=== PATIENT | male | born 1980 | race Caucasian/White ===

== ENCOUNTER 2021-07-26 10:46 | Outpatient (CLI) | payer OTHER ==
[2021-07-26 11:45] VITALS: BP 151/82
--- NOTE | 2021-07-26 11:45 | SLEEP CARE CONSULTATION ---
Information from patient questionnaire entered by Rylee Lyman. I have reviewed and concur with the information entered by Rylee Lyman. This document represents the service I personally performed and the decisions made by me, Amparo Rhodes ARNP. History of Present Illness Service Date and Time: 07/26/2021 1046 Reason for Visit: New patient Chief Complaint: reports: Unrefreshed sleep, Snoring, Observed pauses in breathing, Fatigue Date of Onset: 2 years Usual bedtime: 9 pm, sometimes 10-11 pm Time it takes to fall asleep: 20 minutes Snores at night: Yes Observed to quit breathing while asleep: Yes Sleeps alone due to snoring: Yes Number of times waking at night: 1-2 Reasons for waking at night: reports: Bathroom Toss, Turn, or Twitch while sleeping: No Recalls having dreams: Yes Usually gets out of bed at: 4:30 am; weekends about 9 AM Feels refreshed in the morning: No Morning headache: No Sleepy or fatigued during the day: Yes Ever fallen asleep while driving: No (sometimes at end of day) Takes day naps: No Dreams during day naps: Yes Prior sleep studies: No Additional HPI information: I had the pleasure of seeing KAITLIN BOSWELL today regarding the po ssibility of him having a sleep disorder. His current complaints are fatigue, observed pauses in breathing, snoring and unrefreshed sleep. His has encouraged him to be checked due to the loud snoring. He will gasp in his sleep and has seen him sit up in bed then lay down to go back to sleep without really awakening about 1 time a month. He does not wake up feeling refreshed and has fatigue/tiredness during the day. He drinks a lot of coffee (6 cups) through the first part of day to stay awake. - Parasomnia Symptoms Ever been unable to move upon waking from sleep: Yes Walks in sleep: No Talks in sleep: Yes Ever acted out dreams in sleep: No Ever felt weak in the knees when startled or emotional: No Bothered by creepy, crawly, restless sensations in legs: No Problems with memory or concentration: Yes (more memory) Subjective Initial [place] Sleepiness Scale score: 12 (in 2020) Past Medical History Past Medical History: reports: Other (Reoccuring rash that occurs with changes in weather and sometime stress) Social History The patient's occupation is a Active . Patient is and lives in [place]. Have you smoked in the past 12 months: No Alcohol use: Yes Alcohol amount and frequency: 2 drinks twice a week Caffeine use: Yes Caffeine amount and frequency: 6 cups daily Family History Family history of sleep disordered breathing: Yes Family Hx Sleep Apnea: Mother: Snoring, Father: Snoring, Sleep apnea - Treated, Grandparent: Snoring Allergies and Home Medications Drug allergies reviewed: Yes (NKDA) Home medication list reviewed: Yes Allergy and home medication list: uses a triamcinolone and other cream when he has rashes Review of Systems Weight gain over past 5 years: 10 Weight loss over past 5 years: 10 Cardiovascular: denies: high blood pressure Gastrointestinal: denies: heartburn Neurological: reports: gait or balance problems. denies: headaches Psychiatric: denies: anxiety, depression, mood disorder Ear/Nose/Throat: reports: wisdom teeth removed (1999). denies: injury to nose, tonsillectomy Endocrine: denies: thyroid disease Immunologic: reports: rash (reoccurs with changes in weather somertimes stress) Physical Exam Blood Pressure: 151/82 Cuff size: long Heart Rate: 93 O2 Saturation: 98 Height: 5 ft 9 in Weight: 207 lb (with boots) Body Mass Index: 30.5 BMI Classification: Obese Neck circumference: 15.75 (inches) Nostrils: patent to airflow Mouth and throat: narrow oropharynx Soft palate: long Hard palate: normal Uvula: normal Uvula visualization: 100% Mallampati Class I Tongue: enlarged in size with teeth ferro on lateral edges Tonsils: 1+ Neck: normal w/o lymphadenopathy or thyromegaly Heart: regular rate and rhythm Lungs: clear bilaterally Impression and Plan 1. Suspected Obstructive Sleep Apnea-Hypopnea Syndrome, as suggested by a history of loud and irregular snoring, observed cessation of breath while asleep, unrefreshed sleep, cognitive impairment, and excessive daytime sleepiness. Narrow oropharynx and obesity are common predisposing factors for obstructive sleep apnea-hypopnea syndrome. I recommend proceeding to polysomnography to confirm the diagnosis and to assess severity. If the patient has significant sleep disordered breathing, a manual CPAP titration study will also be performed to find the optimal treatment pressure. I informed the patient of what the sleep studies involve and after some discussion, obtained agreement to proceed. The pathophysiology of obstructive sleep apnea-hypopnea syndrome was discussed with the patient and health risks of cardiovascular and cerebrovascular disease if not treated. AAS brochure for obstructive sleep apnea-hypopnea syndrome given and reviewed. Risks of drowsy driving discussed in detail and patient advised to avoid long distance driving and to last puller at the first sign of drowsiness. Patient agreed to plan. * Schedule polysomnography +- manual CPAP titration study and return in 1-2 weeks after the study to discuss result and initiate therapy. * Avoid long distance driving or driving when feeling sleepy. * Avoid alcohol, sedative and muscle relaxant around bedtime. * Attempt to lose weight. * Review instructions provided by trained office staff on how to prepare for the sleep study. * Return for follow-up after sleep study completed. Counseling Topics: Weight loss health impact Visit Type: In Office Time Spent with Patient (minutes): 33 Provider Statement: I spent 100% of the Face to Face Visit with the patient with greater than 50% spent counseling the patient and coordination of care.
== END 2021-07-26 10:47 | disposition home or self-care (01) ==
LOC: SC 10:46
PROVIDERS: ATTEND Nurse Practitioner Family
DX: G47.10 Hypersomnia, unspecified (principal); R06.83 Snoring; G47.8 Other sleep disorders; R41.89 Other symptoms and signs involving cognitive functions and awareness; R06.81 Apnea, not elsewhere classified; E66.9 Obesity, unspecified; Z68.30 Body mass index [BMI] 30.0-30.9, adult
CPT/HCPCS: 99203; 99212

== ENCOUNTER 2021-08-01 14:41 | Outpatient (CLI) | payer OTHER | END 2021-08-01 14:42 | disposition home or self-care (01) | LOC: SC 14:41 | PROVIDERS: ATTEND Nurse Practitioner Family | DX: G47.33 Obstructive sleep apnea (adult) (pediatric) (principal); R09.02 Hypoxemia | CPT/HCPCS: 95806 ==

== ENCOUNTER 2021-08-09 14:28 | Outpatient (CLI) | payer OTHER ==
--- NOTE | 2021-08-09 15:28 | SLEEP CARE CONSULTATION ---
Information from patient questionnaire entered by Dre Cade. I have reviewed and concur with the information entered by Dre Cade. This document represents the service I personally performed and the decisions made by , Amparo Rhodes ARNP. History of Present Illness Service Date and Time: 08/09/2021 1428 Initial [place] Sleepiness Scale score: 12 (in 2020) Current [place] Sleepiness Scale score: 9 Additional HPI information: KAITLIN BOSWELL returns for follow up and results of the recently performed home sleep study. I explained the pathophysiology behind obstructive sleep apnea. We then spent quite a bit of time discussing different treatment options. For mild obstructive sleep apnea, surgery and oral appliance are alternatives to nasal CPAP therapy but in moderate or severe cases, nasal CPAP is the most effective and reliable treatment. I reviewed the impact of weight changes on sleep apnea and strongly recommended losing weight. Patient counseled not drink alcohol less than 4 hours before bedtime as it can increase snoring and apnea. Patient was cautioned about risks of drowsy driving until sleepiness symptoms resolve. Sleep Study - Results Type of Sleep Study: Home sleep study Prior sleep studies: No Polysomnography/Home Sleep Study results: Physician Impression: The quality of the study is good. The length of the study is not optimal (< 240 minutes). Please also see the tabulated and graphic data. 1. Obstructive Sleep Apnea-Hypopnea (ICD-10 G47.33), mild, with an AHI of 10.7 /hr and alvin SaO2 of 86%. During the study, the patient had 12 apneas (12 obstructive, 0 central, 0 mixed) and 17 hypopneas. The longest episode lasted 73.5 seconds. The patient only slept supine during this study (supine AHI was 10.7 and non-supine, 0.00). 2. Hypoxemia (ICD-10 R09.02), minimal, with the lowest oxygen saturation of 86 % and 0.8 minutes with SaO2 under 90%. Baseline oxygen saturation was normal (Average oxygen saturation was 93%). Allergies and Home Medications Home medication list reviewed: Yes (no changes) Review of Systems Review of systems same as previous: Yes (no changes) Physical Exam Vital signs obtained and entered by: Blood Pressure: 139/94 Cuff size: wrist Heart Rate: 81 O2 Saturation: 98 Height: 5 ft 9 in Weight: 206 lb (with boots) Body Mass Index: 30.4 BMI Classification: Obese Impression and Plan 1. Obstructive Sleep Apnea-Hypopnea Syndrome, mild, with lowest oxygen saturation of 86%. Obviously this is the cause of the patients symptoms of unrefreshed sleep, and excessive daytime sleepiness. Positive pressure therapy could benefit his overall health and reduce risks for cardiovascular and cerebrovascular adverse events. Patient would like to avoid having to use a CPAP machine. Patient's HST was suboptimal because he did not sleep non-spine and the time of sleep was under 240 minutes. I would like to repeat the study and have him come in for a in lab PSG to get a better study. He was encouraged to try to sleep on his sides as well as his back. Patient voice understanding and agreement. 2. Hypoxemia, minimal, with the lowest oxygen saturation of 86 % and 0.8 minutes with SaO2 under 90%. His baseline oxygen saturation was normal with an average oxygen saturation of 93%. * Schedule polysomnography +- manual CPAP titration study and return in 1-2 weeks after the study to discuss result and initiate therapy. * Avoid long distance driving or driving when feeling sleepy. * Avoid alcohol, sedative and muscle relaxant around bedtime. * Attempt to lose weight. * Review instructions provided by trained office staff on how to prepare for the sleep study. * Return for follow-up after sleep study completed. Counseling Topics: Weight loss health impact Visit Type: In Office Time Spent with Patient (minutes): 22 Provider Statement: I spent 100% of the Face to Face Visit with the patient with greater than 50% spent counseling the patient and coordination of care.
[2021-08-09 15:29] VITALS: BP 139/94
== END 2021-08-09 14:29 | disposition home or self-care (01) ==
LOC: SC 14:28
PROVIDERS: ATTEND Nurse Practitioner Family
DX: G47.33 Obstructive sleep apnea (adult) (pediatric) (principal); E66.9 Obesity, unspecified; Z68.30 Body mass index [BMI] 30.0-30.9, adult
CPT/HCPCS: 99212; 99213

== ENCOUNTER 2021-12-21 20:27 | Outpatient (CLI) | payer OTHER | END 2021-12-21 20:28 | disposition home or self-care (01) | LOC: SC 20:27 | PROVIDERS: ATTEND Nurse Practitioner Family | DX: G47.33 Obstructive sleep apnea (adult) (pediatric) (principal) | CPT/HCPCS: 95810 ==

== ENCOUNTER 2022-01-04 08:26 | Outpatient (CLI) | payer OTHER ==
[2022-01-04 09:17] VITALS: BP 125/72
--- NOTE | 2022-01-04 09:17 | SLEEP CARE CONSULTATION ---
Information from patient questionnaire entered by Joshua Pabon MA. I have reviewed and concur with the information entered by Joshua Pabon MA. This document represents the service I personally performed and the decisions made by , Amparo Rhodes ARNP. History of Present Illness Service Date and Time: 01/04/2022 0826 Initial [place] Sleepiness Scale score: 12 (in 2020) Current [place] Sleepiness Scale score: 9 (2021) Additional HPI information: KAITLIN BOSWELL returns for follow up and results of the recently performed polysomnography. I explained the pathophysiology behind obstructive sleep apnea. We then spent qu ite a bit of time discussing different treatment options. For mild obstructive sleep apnea, surgery and oral appliance are alternatives to nasal CPAP therapy but in moderate or severe cases, nasal CPAP is the most effective and reliable treatment. Because apnea is primarily in supine position, then positional management therapy could be effective. Methods discussed such as positioning with pillows, using a T-shirt with tennis balls in the back, and shown commercial products that have a pillow format on back to prevent supine sleep. I reviewed the impact of weight changes on sleep apnea and strongly recommended losing weight. After some discussion, the patient opted to go with the nasal CPAP therapy. Nasal autoCPAP set at 4-15 cmH20 will be ordered with rationale explained. A manual t itration study will be ordered if unable to find optimal pressure with office adjustments. I explained how CPAP machine works and what to expect when using the machine. Using CPAP every night in order to get used to it was emphasized. Patient advised to put CPAP mask on before getting into bed so as not to fall asleep without CPAP. To assist acclimation to CPAP use, it could also be used for a short time during day while reading or watching TV. The patient was instructed to call the CPAP supplier to discuss any mechanical problem that may occur. If the mask given is uncomfortable or is difficult to keep on through the night even with adjustment, contact the CPAP supplier as many will replace with another mask style if notified before 30 days. If snoring or perceives is not getting enough air or too much air from the machine, notify this office. [facility] patient education PAP tips reviewed and given to patient. Patient counseled not drink alcohol less than 4 hours before bedtime as it can increase snoring and apnea. Patient was cautioned about risks of drowsy driving until sleepiness symptoms resolve. Sleep Study - Results Type of Sleep Study: Home sleep study Prior sleep studies: No Polysomnography/Home Sleep Study results: IMPRESSION: The quality of the study is good. The patient had slightly reduced sleep efficiency due to sleep onset insomnia. The sleep architecture was abnormal for sleep fragmentation and reduced amount of time spent in REM sleep. Respiratory monitoring showed moderate obstructive sleep apnea-hypopnea (AHI = 15.8) associated with frequent arousals, oxyhemoglobin desaturation and mild hypoxia (alvin oxygen saturation of 86%). The patient only slept supine during this study (supine AHI = 15.8; non-supine = 0.00). Snore was light to moderate in intensity. There was no significant periodic leg movement of sleep. Cardiac rhythm was normal sinus rhythm without significant arrhythmia. No abnormal behavior (parasomnia) observed during the night. Allergies and Home Medications Known drug allergies: Yes Drug allergies reviewed: Yes Home medication list reviewed: Yes (no changes) Review of Systems Review of systems same as previous: Yes (no changes) Physical Exam Vital signs obtained and entered by: DARYA CUMMINGS Blood Pressure: 125/72 (RIGHT, PULES 77, RESP 16) Heart Rate: 79 O2 Saturation: 97 (WITH PAPER MASK) Height: 5 ft 9 in Weight: 202 lb (WITH AND SHOES) Weight change since last visit: 4 lb loss Body Mass Index: 29.8 BMI Classification: Overweight Impression and Plan 1. Obstructive Sleep Apnea-Hypopnea Syndrome, moderate, with lowest oxygen saturation of 86%. Obviously this is the cause of the patients symptoms of unrefreshed sleep, and excessive daytime sleepiness. Positive pressure therapy could benefit overall health and reduce risk of cardiovascular or cerebrovascular adverse events. As mentioned above, the patient will be started on nasal autoCPAP therapy with pressure set at 4-15 cmH2O. A manual titration study will be completed if unable to find optimal treatment pressure with office adjustments. Compliance guidelines also reviewed. A copy of compliance guidelines will be given for reference at check out. 2. Hypoxemia, mild. His alvin oxygen saturation was 86% with 0.7 minutes spent under 90%. His baseline oxygen saturation was normal with an average of 94%. * Nasal auto CPAP therapy, pressure at 4-15 cm H2O. * Attempt to lose weight. * Avoid alcohol consumption near bedtime. * Avoid supine sleep until using CPAP. * The patient is again cautioned about driving until sleepiness completely resolves. * Return one month after CPAP obtained. I will assess response to therapy and compliance at that time. Counseling Topics: Weight loss health impact Visit Type: In Office Time Spent with Patient (minutes): 21 Provider Statement: I spent 100% of the Face to Face Visit with the patient with greater than 50% spent counseling the patient and coordination of care.
== END 2022-01-04 08:27 | disposition home or self-care (01) ==
LOC: SC 08:26
PROVIDERS: ATTEND Nurse Practitioner Family
DX: G47.33 Obstructive sleep apnea (adult) (pediatric) (principal); R09.02 Hypoxemia
CPT/HCPCS: 99212; 99213

== ENCOUNTER 2022-03-20 18:10 | Outpatient (CLI) | payer OTHER ==
--- NOTE | 2022-03-20 15:18 | SLEEP CARE CONSULTATION ---
Information from patient questionnaire entered by Radha Lu. I have reviewed and concur with the information entered by Radha Lu. This document represents the service I personally performed and the decisions made by , Amparo Rhodes ARNP. History of Present Illness Service Date and Time: 03/20/2022 1600 Previous diagnosis: Mild, Obstructive Sleep Apnea-Hypopnea Syndrome AHI: 15.8 (in 2021) Reason for follow up: first compliance (1ST COMPLIANCE 02/05 SET UP, RESMED ) Equipment type: CPAP Equipment obtained from: Other ([facility]; got initial supplies) Mask style: Full face Mask brand: Resmed (AirFit , large) Backup mask available: No (will keep old mask when replaced) Last cushion change: 1 week Prior sleep studies: No Type of Sleep Study: Home sleep study HPI additional information: KAITLIN BOSWELL was diagnosed to have mild, AHI 15.8, obstructive sleep apnea-hypopnea syndrome and returns via video telehealth visit today for CPAP therapy first compliance follow-up. Sleep Study - Results Type of Sleep Study: Home sleep study Prior sleep studies: No CPAP Compliance Data - Data Reviewed with Patient Average duration of nightly device use: 7 hours 29 minutes Compliance rate %: 100 (30 days) Current pressure setting (cmH2O): 8-12 Average residual AHI: 1.4 Central apnea: 0.3 Obstructive apnea: 0.8 Average large leak: 15.9 L/min Subjective Patient concerns: reports: mask discomfort (better with mask change from pillows to full face), condensation in mask/hose (resolved with heated hose turned up), other (rash on left side of nose; resolved with increasing size of mask). denies: aerophagia, air blowing in eyes, mask leak noise, nasal congestion, dry mouth, nose, throat, epistaxis Observed to snore while using device: No Current pressure setting perceived as: comfortable On therapy, patient: reports: sleeping better, awakening more refreshed, being more awake and alert during the day, more rested overall. denies: drowsiness while driving Initial [place] Sleepiness Scale score: 12 (in 2020) Current [place] Sleepiness Scale score: 9 Allergies and Home Medications Home medication list reviewed: Yes (no changes) Review of Systems Review of systems same as previous: Yes (no changes) Physical Exam Vital signs obtained and entered by: Rogerio LU MA Height: 5 ft 9 in Weight: 196 lb (per patient) Body Mass Index: 28.9 BMI Classification: Overweight Impression and Plan 1. Obstructive Sleep Apnea-Hypopnea Syndrome, mild, with excellent treatment compliance and good apnea control. On CPAP therapy, the patient has better sleep quality and is more rested overall. Patient did start with nasal pillows mask but it was not comfortable. He eventually switched to a fullface mask, size medium but developed a rash on the side of his nose. He changed to the large size of the fullface ResMed AirFit mask and he has been happy with the fit. He no longer has a rash and it is comfortable. Patient's apnea severity and rationale for treatment to reduce apnea, improve sleep quality and reduce cardiovascular and cerebrovascular events was reviewed. Patient encouraged to try to lose weight to help reduce apneas and improve overall health. * Continue auto CPAP pressure at 8-12 cmH2O * Notify me if snoring with mask or feeling that the pressure is too much or too little * Attempt to lose weight * Call this office if any problems using CPAP * Return for follow up in 2-3 months, or sooner if concerns arise Counseling Topics: Spare mask, Weight loss health impact Visit Type: Telehealth Video Video Type: Doximity Patient Location: Home Location of Provider: Office Patient agrees and consents to this telehealth visit type: Yes Patient agrees to have their insurance billed: Yes Time Spent with Patient (minutes): 22 Provider Statement: I spent 100% of the Telehealth Video Call with the patient with greater than 50% spent counseling the patient and coordination of care.
== END 2022-03-20 18:11 | disposition home or self-care (01) ==
LOC: SC 18:10
PROVIDERS: ATTEND Nurse Practitioner Family
DX: G47.33 Obstructive sleep apnea (adult) (pediatric) (principal)